=== PATIENT | female | born 1950 | race Caucasian/White ===

== ENCOUNTER 2016-12-28 | Emergency (ER) | payer OTHER ==
--- NOTE | 2016-12-28 00:53 | PROVIDER DOCUMENTATION ---
HPI-Headache - General Chief Complaint: Dizziness Stated Complaint: HIGH BP/DIZZY Time Seen by Provider: 12/28/16 00:11 Source: patient Allergies/Adverse Reactions: Patient Allergies Allergy/AdvReac Type Severity Reaction Status Date / Time rilonacept [From Arcalyst] Allergy ANAPHYLAXIS Verified 12/28/16 00:10 Home Medications: Home Medication List Medication Instructions Recorded Confirmed Last Taken Type Thyroid,Pork [[place] Thyroid] 30 mg PO 4XDAY 03/26/14 12/28/16 1 Day Ago History Sotalol [Betapace] 80 mg PO BID 09/10/14 12/28/16 12/28/16 History Nebivolol [Bystolic] 2.5 mg PO BID 04/02/16 12/28/16 12/28/16 History Clonidine HCl 0.1 mg PO TID PRN #30 tablet 11/08/16 12/28/16 Unknown Rx - History of Present Illness-Headache Nature of Presenting Problem: 66 y/o WF c hx of CVA x 3, 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 Currently BP 148/80, no headache, dizziness or neurological deficits. States she felt shakey and like her body was heavy, but that has resolved and she is just feeling tired. BP was read off a home machine, checked her BG which was 127 at home. Denies weakness on one side or the other. She states she just become worried due to all her history. States she sometimes have left sided weakness due to a stroke, but not currently Review of Systems - Adult - REVIEW OF SYSTEMS - ADULT Constitutional: reports: no symptoms reported. denies: chills, fatique Eyes: reports: no symptoms reported. denies: decreased vision, blurred vision, double vision, eye pain Ears, Nose, Mouth & Throat: reports: no symptoms reported. denies: ear pain, nose pain, throat pain Cardiovascular: reports: no symptoms reported. denies: chest pain, palpitations Respiratory: reports: no symptoms reported. denies: cough, shortness of breath Gastrointestinal: reports: no symptoms reported. denies: abdominal pain, diarrhea, nausea, vomiting Genitourinary: reports: no symptoms reported Musculoskeletal: reports: no symptoms reported. denies: back pain, muscle aches Integumentary: reports: no symptoms reported Neurological: reports: see HPI, dizziness/vertigo, tremors. denies: ataxia, headache/migraines, loss of balance, numbness, paresthesia, seizure, slurred speech, syncope Psychiatric: reports: no symptoms reported Endocrine: reports: no symptoms reported Hematologic/Lymphatic: reports: no symptoms reported Allergic/Immunologic: reports: no symptoms reported All Other Systems: Reviewed and Negative Past History - Adult - PAST MEDICAL HISTORY-ADULT Review of Records: reports: Old Records Reviewed, Nursing Assessment Review, Medications Reviewed Major Childhood Illnesses: reports: denies history Cardiovascular: reports: HTN, palpitations Respiratory: reports: COPD Gastrointestinal: reports: denies history Obstetrical/Gynecological: reports: denies history Genitourinary: reports: denies history Musculoskeletal: reports: denies history Neurological: reports: CVA, other (aneursym) Endocrine/Immune: reports: thyroid disorder (Graves DZ) Other Conditions: reports: denies history - PRIOR SURGERIES/PROCEDURES Surgical/Procedure History: reports: cholecystectomy, hysterectomy, other ( brain surgery) - PRIOR HOSPITALIZATIONS Prior Hospitalizations: reports: for similar symptoms - IMMUNIZATION STATUS Childhood Immunizations: See Nurse Assessment Flu Vaccine: See Nurse Assessment - FAMILY HISTORY Family History: reviewed, not pertinent Physical Exam- Neurological - Physical Exam-Neuro Initial Vital Signs Reviewed: Yes General Appearance: appears well, alert, no apparent distress Eye Exam: bilateral eye: normal inspection, PERRL, EOMI HENMT: normocephalic/atraumatic, moist mucous membranes, normal ENT inspection, TMs normal, pharynx normal Head Injury: no evidence of injury Neck: non-tender, full range of motion, supple, normal inspection Respiratory: chest non-tender, lungs clear, normal breath sounds, no pleuratic chest pain, no respiratory distress. 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 Exam: normal hearing, normal speech, PERRL Coordination/Gait: normal gait Motor/Sensory: no motor deficit, no sensory deficit, negative Babinski's sign Integumentary: normal color, normal turgor, warm/dry Psych/Mental Status: normal mood/affect, normal thought content, normal thought process, oriented x 3 - Glascow Coma Scale Best Eye Response: (4) open spontaneously Best Verbal Response: (5) oriented Best Motor Response: (6) obeys commands Progress - PLAN OF CARE/RESULTS Progress/Plan/Lab Results: Vital Signs Temp Pulse Resp BP Pulse Ox 12/28/16 01:27 58 L 19 133/72 94 L 12/28/16 00:57 59 L 19 121/65 93 L 12/28/16 00:30 65 22 151/82 95 12/28/16 00:04 97.0 F L 72 20 155/94 97 rilonacept [From Arcalyst] Allergy (Verified 12/28/16 00:10) ANAPHYLAXIS Thyroid,Pork [[place] Thyroid] 30 mg PO 4XDAY 03/26/14 Sotalol [Betapace] 80 mg PO BID 09/10/14 Nebivolol [Bystolic] 2.5 mg PO BID 04/02/16 Clonidine HCl 0.1 mg PO TID PRN #30 tablet 11/08/16 Orders Category Date Time Status HEAD W/O CONTRAST [CT] Stat Exams 12/28/16 00:48 Taken - CT/MRI 1 CT Study: Head Impression: Normal (No evidence of acute ischemia by CT. Status post aneurysm repair with an bilateral suprasellar region per Dr. Parham, [facility]) Departure - Departure Time of Disposition Order: 01:47 DIAGNOSIS: HTN (hypertension) Qualifiers: Hypertension type: essential hypertension Qualified Code(s): I10 - Essential ( primary) hypertension Disposition: HOME 01 Certified Medical Emergency: Emergent Condition: Stable Additional Instructions: Follow up with Dr. Alvarez. ED Follow Up Instructions: You have been treated by a care provider in the Emergency Department. These instructions are being provided to you so you can have an understanding of how to care for yourself upon discharge. Upon discharge from the Emergency Department, you are responsible for making arrangements for follow-up care by a physician of your choice. Take all prescribed medications as directed. Return to the Emergency Department immediately for any new or worsening symptoms. You may call the Physician Referral phone number at [phone] to obtain a list of Physicians who are taking new patients. Attestation - Physician/ JOSEE Attestation Patient care was provided by Advanced Practice Provider:: Yes Advanced Practice Provider:: Sonya Velasquez Advanced Practice Provider documentation review:: The Mid-level provider documentation, treatment plan and medical decision making was reviewed by the physician who agrees with all treatment and medical decision making by the MLP.
[2016-12-28 01:49] VITALS: BP 129/71
--- NOTE | 2016-12-28 06:53 | Diag Imaging Result Document ---
PROCEDURE NAME: HEAD W/O CONTRAST - 12/28/2016 CT BRAIN WITHOUT CONTRAST: TECHNIQUE: Dose-reduction protocol. COMPARISON: Compared to 04/15/2016. FINDINGS: There is evidence of bilateral aneurysm repair with multiple surgical clips. These create metallic artifact. No parenchymal hemorrhage. No epidural or subdural hematoma. No subarachnoid hemorrhage. No mass identified on this noncontrasted exam. No hydrocephalus. No sinus opacification. IMPRESSION: 1. Prior aneurysm repair. 2. No hemorrhage. No acute abnormality identified. A preliminary report was given at 1:43 a.m.
== END 2016-12-28 01:55 | disposition home or self-care (01) ==
LOC: P.ED
DX: I10 Essential (primary) hypertension (principal); R42 Dizziness and giddiness; R25.1 Tremor, unspecified; J44.9 Chronic obstructive pulmonary disease, unspecified; Z86.73 Personal history of transient ischemic attack (TIA), and cerebral infarction without residual deficits; E05.00 Thyrotoxicosis with diffuse goiter without thyrotoxic crisis or storm; Z79.899 Other long term (current) drug therapy
CPT/HCPCS: 70450

== ENCOUNTER 2019-06-08 23:44 | Observation (INO) ==
[2019-06-09] MEDS ORDERED: DUONEB (A & A) INH ONE (00:18)
[2019-06-09 00:40] LABS: BASO# 0.02 X1000 (0.0-0.2); BASO% 0.2 % (0.0-0.8); EOS% 1.6 % (0.0-10.0); HEMATOCRIT 41.5 % (37.0-47.0); HEMOGLOBIN 13.8 g/dL (12.0-16.0); IMM GRAN# 0.06 X1000 (0.0-0.04); IMM GRAN% 0.5 % (0.0-0.5); LYMPH# 3.22 X1000 (1.2-3.4); MCH 30.3 PG (27-31); MCHC 33.3 g/dL (33-37); MCV 91.2 FL (81-99); MONO# 0.79 X1000 (0.11-0.59); MONO% 6.1 % (1.7-9.3); MPV 9.5 FL (7.4-10.4); NEUT% 66.6 % (42.2-75.2); PLT 351 X1000 (130-400); RBC 4.55 XMIL (4.2-5.4); RDW 14.9 % (11.5-14.5); WBC 12.89 X1000 (4.8-10.8)
[2019-06-09 00:47] LABS: BE 3.2 mmoll (-3.0-3.0); BLOOD TYPE ARTERIAL; HCO3-(ACT) 27.1 mmoll (20.0-26.0); METHB 1.5 % (0.0-1.5); O2(CT) 15.8 mL/dL (15.0-23.0); PCO2(98.6) 45 mmHg (35-45); PO2(98.6) 67 mmHg (60-100); SAMPLE BLOOD; SAO2 96.7 % (95.0-100.0); THB 13.1 g/dL (11.5-17.4); pH(98.6) 7.41 (7.35-7.45)
[2019-06-09 00:48] LABS: INR 0.92; PROTIME 12.8 Seconds (11.0-16.0)
[2019-06-09 00:50] LABS: ALLEN TEST YES; MODALITY ROOM AIR; O2HB 85.4 % (95.0-99.0)
[2019-06-09 00:57] LABS: AGAP 10; ALBUMIN 3.5 g/dL (3.5-5.0); ALKALINE PHOSPHATASE 64 U/L (32-104); BUN 14 mg/dL (8-22); CALCIUM 8.2 mg/dL (8.8-10.2); CHLORIDE 106 mmol/L (98-107); CK PROFILE 82 U/L (24-173); COSMO 286; CREATININE 0.6 mg/dL (0.5-0.9); ESTIMATED GFR > 60; GLUCOSE 140 mg/dL (70-104); GOT 20 U/L (10-30); GPT 20 U/L (10-36); MAGNESIUM 1.7 mg/dL (1.5-2.7); SODIUM 142 mmol/L (136-145); TCO2 26 mmol/L (25-35); TOTAL BILIRUBIN < 0.15 mg/dL (0.20-1.00); TOTAL PROTEIN 5.7 g/dL (6.3-8.3)
[2019-06-09] MEDS ORDERED: SOLU-MEDROL IV ONE (01:15)
[2019-06-09] MEDS ORDERED: LEVAQUIN 750 MG/D5W 750 MG/150 ML IVPB IV ONE (01:15)
[2019-06-09] MEDS ORDERED: TYLENOL PO PRN (01:21)
[2019-06-09] MEDS ORDERED: ZOFRAN IV PRN (01:21)
--- NOTE | 2019-06-09 01:21 | PROVIDER DOCUMENTATION ---
This chart was entered by Jae Basilio Scribe, acting as scribe for Freddie Herrmann MD. HPI-Respiratory General - General Chief Complaint: Shortness of Breath Stated Complaint: BP PROBS/SOB Time Seen by Provider: 06/08/19 23:51 Source: patient Allergies/Adverse Reactions: Patient Allergies Allergy/AdvReac Type Severity Reaction Status Date / Time bismuth subsalicylate Allergy ANAPHYLAXIS Verified 09/21/18 18:21 [From Kaopectate (bismuth subsalicy)] rilonacept [From Arcalyst] Allergy ANAPHYLAXIS Verified 09/21/18 18:21 Home Medications: Home Medication List Medication Instructions Recorded Confirmed Last Taken Type Thyroid,Pork [[place] Thyroid] 90 mg PO DAILY 03/26/14 09/21/18 09/21/18 History Propranolol HCl 10 mg PO RTBID 06/16/18 09/21/18 09/21/18 History Albuterol 2.5MG/Ipratrop 0.5MG 2 puff INH Q6H PRN PRN 09/21/18 09/21/18 09/21/18 History [Duoneb] Ellipta 1 inh IH DAILY 09/21/18 09/21/18 History Sucralfate [Carafate] 1 gm PO 4XDAY 09/21/18 09/21/18 09/21/18 History - History of Present Illness-Resp Nature of Presenting Problem: Pt is a 69 yof who presents to the ED with a CC of shortness of breath. Pt states she became short of breath approximately thirty minutes prior to arrival to the ED. Pt states her blood pressure elevated and she started to feel like she was losing control of her body movements. Pt reports a hx of a stroke. Pt denies any chest pain or loss of consciousness. Pt states she has oxygen at home, but states she does not use it. Pt reports being a 1 ppd smoker. Pt also complains of a cough, being nauseas, feeling lightheaded, and having indigestion. Quality of Pain: reports: none Severity in ED: reports: mild Onset/Duration: reports: 1-3 hours ago Timing: reports: still present Cough Quality/Degree: reports: mild Episode Frequency: occasional episodes Current Respiratory Medication Therapy: Initiated see nurses note Similar Symptoms Previously?: No Recently seen or treated by another doctor?: No Review of Systems - Adult - REVIEW OF SYSTEMS - ADULT Constitutional: reports: see HPI Eyes: reports: no symptoms reported Ears, Nose, Mouth & Throat: reports: no symptoms reported Cardiovascular: reports: see HPI, irregular heart rate Respiratory: reports: see HPI, cough, shortness of breath Gastrointestinal: reports: no symptoms reported Genitourinary: reports: no symptoms reported Musculoskeletal: reports: no symptoms reported Integumentary: reports: no symptoms reported Neurological: reports: see HPI, dizziness/vertigo Psychiatric: reports: no symptoms reported Endocrine: reports: no symptoms reported Hematologic/Lymphatic: reports: no symptoms reported Allergic/Immunologic: reports: no symptoms reported All Other Systems: Reviewed and Negative Past History - Adult - PAST MEDICAL HISTORY-ADULT Review of Records: reports: Old Records Reviewed, Nursing Assessment Review, Medications Reviewed, Social history reviewed & non-contributory. Major Childhood Illnesses: reports: denies history Cardiovascular: reports: HTN, palpitations Respiratory: reports: asthma, COPD Gastrointestinal: reports: denies history Obstetrical/Gynecological: reports: denies history Genitourinary: reports: denies history Musculoskeletal: reports: denies history Neurological: reports: CVA, Seizures/Epilepsy, other (aneursym) Endocrine/Immune: reports: thyroid disorder (Graves DZ) Other Conditions: reports: denies history - PRIOR SURGERIES/PROCEDURES Surgical/Procedure History: reports: cholecystectomy, hysterectomy, other (brain surgery) - PRIOR HOSPITALIZATIONS Prior Hospitalizations: reports: for similar symptoms - IMMUNIZATION STATUS Childhood Immunizations: See Nurse Assessment Flu Vaccine: See Nurse Assessment - FAMILY HISTORY Family History: reviewed, not pertinent - SOCIAL HISTORY Smoking: cigarettes, less than 1 pack/day Substance Use: none/never, denies Alcohol Use Frequency: never Physical Exam-General - PHYSICAL EXAM-ADULT Initial Vital Signs Reviewed: Yes - CONSTITUTIONAL General Appearance: alert, mild distress - EYES Eyes: PERRL/EOMI, pink conjunctivae - NECK Neck: non-tender, full range of motion - RESPIRATORY Respiratory: chest non-tender, rales, increased rate - CARDIOVASCULAR Cardiovascular: normal peripheral pulses, regular rate, rhythm, no edema, no gallop, no JVD, no murmur - GASTROINTESTINAL (ABDOMEN) Abdominal Exam: non tender, soft - MUSCULOSKELETAL Extremity: normal range of motion, non-tender - SKIN Integumentary: normal color, warm/dry - NEUROLOGIC Neurologic: grossly normal, no motor/sensory deficits - PSYCHIATRIC Psych/Mental Status: normal mood/affect, normal thought content, normal thought process, oriented x 3 Progress - PLAN OF CARE/RESULTS Progress/Plan/Lab Results: Vital Signs - 8 hr 06/08/19 23:47 06/09/19 00:28 Temperature 98.1 F Pulse Rate 87 68 Respiratory Rate 22 24 Blood Pressure 189/87 O2 Sat by Pulse Oximetry 94 L 92 L Laboratory Results - last 24 hr 06/08/19 06/08/19 06/08/19 23:59 23:59 23:59 WBC 12.89 H RBC 4.55 Hgb 13.8 Hct 41.5 MCV 91.2 MCH 30.3 MCHC 33.3 RDW Std Deviation 14.9 H Plt Count 351 MPV 9.5 Immature Gran % (Auto) 0.5 Neut % (Auto) 66.6 Lymph % (Auto) 25.0 Nolan % (Auto) 6.1 Eos % (Auto) 1.6 Baso % (Auto) 0.2 Immature Gran # (Auto) 0.06 H Neut # (Auto) 8.60 H Lymph # (Auto) 3.22 Nolan # (Auto) 0.79 H Eos # (Auto) 0.20 Baso # (Auto) 0.02 PT INR Specimen Type Sample Site pH pCO2 pO2 HCO3 Base Excess Oxyhemoglobin ABG O2 Sat (Calculated) ABG O2 Saturation ABG Carboxyhemoglobin ABG Methemoglobin Edvin Test A-a O2 Difference Total Hemoglobin Lactate Blood Gas Modality FiO2 % Sodium 142 Potassium 4.0 Chloride 106 Carbon Dioxide 26 Anion Gap 10 BUN 14 Creatinine 0.6 Estimated GFR/1.73 m2 > 60 BUN/Creatinine Ratio 23 Glucose 140 H Calculated Osmolality 286 Calcium 8.2 L Magnesium 1.7 Total Bilirubin < 0.15 L AST 20 ALT 20 Alkaline Phosphatase 64 Creatine Kinase 82 Troponin T Dbb-R-Noissyguxrt Pept 159 Total Protein 5.7 L Albumin 3.5 Globulin 2.0 Albumin/Globulin Ratio 2.0 06/08/19 06/08/19 06/09/19 23:59 23:59 00:27 WBC RBC Hgb Hct MCV MCH MCHC RDW Std Deviation Plt Count MPV Immature Gran % (Auto) Neut % (Auto) Lymph % (Auto) Nolan % (Auto) Eos % (Auto) Baso % (Auto) Immature Gran # (Auto) Neut # (Auto) Lymph # (Auto) Nolan # (Auto) Eos # (Auto) Baso # (Auto) PT 12.8 INR 0.92 Specimen Type ARTERIAL Sample Site R RADIAL pH 7.41 pCO2 45 pO2 67 HCO3 27.1 H Base Excess 3.2 H Oxyhemoglobin 85.4 L* ABG O2 Sat (Calculated) 15.8 ABG O2 Saturation 96.7 ABG Carboxyhemoglobin 10.20 H* ABG Methemoglobin 1.5 Edvin Test YES A-a O2 Difference 26.0 Total Hemoglobin 13.1 Lactate 1.00 Blood Gas Modality ROOM AIR FiO2 % 21.0 Sodium Potassium Chloride Carbon Dioxide Anion Gap BUN Creatinine Estimated GFR/1.73 m2 BUN/Creatinine Ratio Glucose Calculated Osmolality Calcium Magnesium Total Bilirubin AST ALT Alkaline Phosphatase Creatine Kinase Troponin T < 0.010 Wri-R-Jfqubpuziwm Pept Total Protein Albumin Globulin Albumin/Globulin Ratio Orders Category Date Time Status Nursing- Obtain EKG once Care 06/09/19 00:22 Active Oxygen Therapy- ED Nursing DIRECTED Care 06/09/19 00:03 Active Saline Loc NOW Care 06/09/19 00:22 Active CHEST-PORTABLE [RAD] Stat Exams 06/09/19 00:[address] HEAD W/O CONTRAST [CT] Stat Exams 06/09/19 00:24 Taken ABG [RESP] Routine Lab 06/09/19 00:27 Completed CBC WITH ELECTRONIC DIFF [HEME] Stat Lab 06/09/19 00:28 Completed CK PROFILE [SP CHEM] Stat Lab 06/09/19 00:28 Completed COMPREHENSIVE METABOLIC PANEL [CHEM] Stat Lab 06/09/19 00:28 Completed MAGNESIUM [CHEM] Stat Lab 06/09/19 00:28 Completed PRO B-NATRIURETIC PEPTIDE Stat Lab 06/09/19 00:28 Completed PROTIME WITH INR [COAG] Stat Lab 06/09/19 00:28 Completed TROPONIN T Stat Lab 06/09/19 00:28 Completed Albuterol 2.5MG/Ipratrop 0.5MG [Duoneb (A & A)] Med 06/09/19 00:18 Discont inued 3 ml INH NOW ONE Aerosol Treatments Routine Oth 06/09/19 00:19 Completed Aerosol Treatments Stat Oth 06/09/19 00:19 Completed Asthma/COPD (Adult) Stat Oth 06/09/19 00:02 Ordered EKG [EKG] Stat Ther 06/09/19 00:22 Ordered Result Diagrams: 06/08/19 23:59 06/08/19 23:59 - REASSESSMENT Reassessment #1 Time Reassessed: 01:16 Status: improving (after duoneb. Also given IVF, solumedrol and levaquin) - EKG 1 Time of EKG reading by physician:: 00:51 EKG Read and Signed by:: Freddie Herrmann EKG Interpretation (*Must complete 3 of following elements*): Normal Rate: 63 Rhythm: NSR [place]: normal QRS: normal HI Interval: normal ST Wave: normal - XRAY 1 XRAY Study: Chest Impression: Abnormal (CM, hyperexpanded, chronic interstitial changes, calcified aortic ring. Read by me at 0110) - CT/MRI 1 CT Study: Head Impression: Abnormal (Read by me at 0120: No bleed or evidence of acute infarct. There are multiple aneurysm clips. There is a meningioma left parietal area. Nothing acute.) - CONSULTS/PCP/HOSPITALIST Notification #1 *Consult/PCP/Hospitalist*: Antonio Time Discussed: 01:17 Consult Disposition: Admit Departure - Departure Date of Disposition Decision: 06/09/19 Time of Disposition Decision: :19 DIAGNOSIS: Near syncope, COPD with exacerbation, Tobacco use disorder Carboxyhemoglobinemia Qualifiers: Encounter type: initial encounter Injury intent: accidental or unintentional Qualified Code(s): T58.91XA - Toxic effect of carbon monoxide from unspecified source, accidental (unintentional), initial encounter Disposition: ADMITTED INPATIENT 09 Certified Medical Emergency: Emergent Condition: Fair Additional Freetext Instructions: ED Follow Up Instructions: You have been treated by a care provider in the Emergency Department. These instructions are being provided to you so you can have an understanding of how to care for yourself upon discharge. Upon discharge from the Emergency Department, you are responsible for making arrangements for follow-up care by a physician of your choice. Take all prescribed medications as directed. Return to the Emergency Department immediately for any new or worsening symptoms. You may call the Physician Referral phone number at [phone] to obtain a list of Physicians who are taking new patients. Referrals and Follow-Ups: Mohamud Alvarez MD [Primary Care Provider] - - Critical Care Note This patient required my direct & personal management of CC.: No Attestation - Physician/ JOSEE Attestation Patient care was provided by Advanced Practice Provider:: No The physician spent face to face time with patient:: Yes Advanced Practice Provider documentation review:: Supervising physician onsite and consulted in the evaluation and care of this patient. The physician did have a face to face encounter with the patient. This chart was documented by the indicated scribe, (Jae Basilio, [place]) and accurately reflects the services I performed and decisions made by me, Freddie Herrmann MD, as attested by the provider's signature.
[2019-06-09] MEDS ORDERED: NICODERM PATCH TD ONE (01:26)
[2019-06-09] MEDS: DUONEB (A & A) INH SCH ×4 (04:27→15:28)
[2019-06-09 04:54] LABS: BILIRUBIN URINE NEGATIVE (NEGATIVE); COLOR YELLOW; GLUCOSE URINE NEGATIVE (NEGATIVE); KETONE URINE NEGATIVE (NEGATIVE); URINE BACTERIA NEGATIVE /HFP; URINE EPITHELIAL CELLS <10 /HPF (<10); URINE SOURCE CLEAN CATCH; URINE WBC <10 /HPF (<10)
--- NOTE | 2019-06-09 05:03 | EKG Report ---
Test Performed on : 06/09/2019 00:47:03 AM Test Reason : sob Blood Pressure : / mmHG Vent. Rate : 063 BPM Atrial Rate : 063 BPM P-R Int : 154 ms QRS Dur : 080 ms QT Int : 416 ms P-R-T Axes : 082 076 064 degrees QTc Int : 425 ms Normal sinus rhythm. Normal ECG When compared with ECG of 21-SEP-2018 18:10, premature atrial complexes. are no longer present Nonspecific T wave abnormality no longer evident in Inferior leads Unconfirmed Result
--- NOTE | 2019-06-09 05:28 | Diag Imaging Result Doc PS360 ---
EXAM: CHEST-PORTABLE HISTORY: sob TECHNIQUE: Chest single view COMPARISON: 03/02/2019 FINDINGS: The lungs are hyperexpanded. The heart is not enlarged. The vessels are not distended. There are no infiltrates. No effusion identified. IMPRESSION: Emphysema Electronically signed by Bartolome Glynn 06/09/2019 5:26 AM
--- NOTE | 2019-06-09 05:34 | Diag Imaging Result Doc PS360 ---
EXAM: CT HEAD W/O CONTRAST HISTORY: near syncope TECHNIQUE: CT head without contrast COMPARISON: 09/21/2018 FINDINGS: There are bilateral aneurysm clips. Large calcification in the left temporal region is unchanged. No parenchymal hemorrhage. No epidural or subdural hematoma. No subarachnoid hemorrhage. Mild chronic microvascular ischemic changes. No mass identified on this noncontrasted exam. No hydrocephalus. No sinus opacification. IMPRESSION: No hemorrhage. No change. A preliminary report was given at 1:23 AM This exam was performed using automated exposure control, adjustment of mA or kV according to patient size, and/or use of iterative reconstruction technique. Electronically signed by Bartolome Glynn 06/09/2019 5:32 AM
[2019-06-09 06:17] LABS: BLOOD URINE 2+ (NEGATIVE); CLARITY CLEAR (CLEAR); LEUKOCYTES URINE NEGATIVE (NEGATIVE); NITRITE URINE NEGATIVE (NEGATIVE); PROTEIN URINE NEGATIVE (NEGATIVE); UROBILINOGEN URINE NORMAL
[2019-06-09 07:41] VITALS: BP 151/79
[2019-06-09] MEDS: SOLU-MEDROL IV SCH ×2 (09:31→14:40)
[2019-06-09 11:42] LABS: BLOOD TYPE ARTERIAL; SAMPLE BLOOD
[2019-06-09 11:43] LABS: BE 2.4 mmoll (-3.0-3.0); HCO3-(ACT) 26.5 mmoll (20.0-26.0); METHB 1.2 % (0.0-1.5); O2(CT) 18.6 mL/dL (15.0-23.0); PCO2(98.6) 38 mmHg (35-45); PO2(98.6) 54 mmHg (60-100); SAO2 92.7 % (95.0-100.0); THB 15.1 g/dL (11.5-17.4); pH(98.6) 7.45 (7.35-7.45)
[2019-06-09 11:47] LABS: MODALITY ROOM AIR; O2HB 87.8 % (95.0-99.0)
--- NOTE | 2019-07-09 14:47 | HISTORY AND PHYSICAL ---
HISTORY OF PRESENT ILLNESS: This is a 69-year-old female who has a history of shortness of breath from smoking and blood pressure problems. She is taking [place] Thyroid 90 mg daily, propranolol 10 p.o. routine b.i.d., albuterol and ipratropium 2.5/0.05 two puffs q.6 p.r.n., Ellipta 1 inhalation daily, and Carafate. She presented to the ER complaining of shortness of breath and blood pressure being high. It started 30 minutes prior to arrival to the emergency room. She stated her blood pressure was elevated, and she felt like she was losing control of her bodily movements. She reports a history of a stroke and aneurysmal bleeds in the past. The patient denies any chest pain or loss of consciousness. She states she has had oxygen available at home but stated she does not use it. She reports being a 1 pack per day smoker. She complains of cough, being nauseated and lightheaded and having indigestion. All of these symptoms are 1 to 3 hours old. ALLERGIES: She is allergic to Kaopectate,levaquin,sulfa,novocaine REVIEW OF SYSTEMS: She has denied any significant weight change, weight loss, fever or chills. Eyes: No visual acuity changes. No irritation. No lens problems. No retina problems. Ears, nose and throat: No pharyngitis, otitis or sinusitis. Cardiovascular: She has history of irregular heart rates. No recent chest pain, PND, orthopnea, claudication, TIA, syncope. Respiratory: She has a cough and gets short of breath off and on. No significant phlegm production. No hemoptysis. No TB. No asthma. Gastrointestinal: No nausea, vomiting, diarrhea, constipation, bloody stools, black stools or tarry stools. : No dysuria, hematuria, polyuria, or pyuria. Musculoskeletal: No issues reported there. Skin: No rashes or lesions or bumps. Neurologic: No focal deficits. No seizure disorder. No migraines. Psychiatric: She is a bit of an anxious lady considering all her aneurysm issues. She has no history of clotting or bleeding disorder. PAST MEDICAL HISTORY: She has had a CVA. She has had seizures. She has epilepsy. She has had an aneurysm. She has thyroid disorder secondary to Graves disease. COPD and asthma secondary to smoking. Hypertension with palpations. PAST SURGICAL HISTORY: She is status post cholecystectomy, hysterectomy and brain surgery on a couple of occasions. SOCIAL HISTORY: She smokes less than a pack a day. She does not use any substances. Never drinks alcohol. PHYSICAL EXAMINATION: VITAL SIGNS: Her temperature was 98.1 on admission, pulse 87, respiratory rate 22, blood pressure 180/87, O2 saturation was 94% and 92%. HEENT: Head was normocephalic. Eyes were PERRL. EOMs intact. Sclerae clear. Fundi benign. Nares patent. Oropharynx negative. NECK: Supple with bounding carotids, without thyromegaly. CHEST: Clear. Bilateral breath sounds, increased respiratory rate. No consolidative findings. No rubs. No rhonchi. No wheezes. CARDIOVASCULAR: Regular rate and rhythm. No murmurs, gallops, clicks or rubs. Peripheral pulses intact. ABDOMEN: Soft. No hepatosplenomegaly. No CVA tenderness. EXTREMITIES: Negative for cyanosis, clubbing or edema. NEUROLOGICAL: Intact with no focal deficits. Mental status was intact and appropriate. ASSESSMENT AND PLAN: She was admitted for shortness of breath, chronic obstructive pulmonary disease secondary to smoking, hypertension, history of an aneurysm, history of headaches, history of chronic anxiety. cc: Mohamud Alvarez MD MTDD
--- NOTE | 2019-07-09 14:55 | DISCHARGE SUMMARY ---
ADMISSION DATE: 06/09/2019 DISCHARGE DATE: 06/09/2019 HISTORY OF PRESENT ILLNESS: This is a 69-year-old lady that was admitted to the hospital with shortness of breath. She has a history of COPD secondary to smoking. She has had an aneurysm before. She has had thyroid disease. She also had lots of anxiety. Her white count was 12,890, hematocrit was 41.5, platelet count was 351. Electrolytes were normal. BUN was 14, creatinine 0.6, GFR greater than 60, ratio 23. Glucose was 140, calcium 8.2, magnesium was 1.7. AST and ALT were negative. Alkaline phosphatase was negative. Total protein and albumin were normal. INR was 0.92. Blood gas showed pH of 7.41, pCO2 of 45, pO2 of 67. Carboxyhemoglobin was 1020. Troponin was intact. EKG with normal sinus rhythm. Chest x-ray was hyperexpanded. CT negative. Multiple aneurysmal clips. She was obviously having, I think, problems secondary to her carbon monoxide from almost 2 packs a day. We advised her to stop doing that. We did not significantly change any of her medications. She was discharged, and we will see her in the office. cc: Mohamud Alvarez MD
== END 2019-06-09 16:12 | disposition home or self-care (01) ==
LOC: P.ED 23:44 → P.MEDSURG 23:44
PROVIDERS: ADMIT Internal Medicine; ATTEND Internal Medicine

== ENCOUNTER 2019-10-11 15:11 | Observation (INO) ==
[2019-10-11] MEDS: ATROVENT NEB INH SCH ×3 (16:54→23:27)
[2019-10-11] MEDS ORDERED: ROCEPHIN 1 GM in NS 50 ML IV SCH (17:00)
[2019-10-11] MEDS: SOLU-MEDROL IV SCH (17:41)
[2019-10-11] MEDS: TESSALON PO SCH (17:41)
[2019-10-11] MEDS ORDERED: ZITHROMAX 500 MG/NS 500 MG/250 ML IVPB IV SCH (18:00)
[2019-10-11] MEDS: SYMBICORT 160/4.5 MICROGM INHALER INH SCH (18:32)
[2019-10-11] MEDS: INDERAL PO SCH (20:50)
--- NOTE | 2019-10-11 21:16 | Diag Imaging Result Doc PS360 ---
EXAM: CHEST-PORTABLE 10/11/2019 HISTORY: SOB TECHNIQUE: Erect AP portable at 2043 COMMENT: There is a cardiac loop recorder projected over the left chest. There is a linear opacity in the costophrenic sulcus on the left which is probably due to atelectasis or fibrosis. This is not as well demonstrated on 06/09/2019. Otherwise the appearance of the chest has not changed significantly considering differences in technique. IMPRESSION: Minimal atelectasis left lower lobe. Electronically signed by [employer] 10/11/2019 9:14 PM
[2019-10-12] MEDS: SOLU-MEDROL IV SCH (04:03)
[2019-10-12] MEDS: ATROVENT NEB INH SCH ×3 (04:08→14:39)
[2019-10-12 04:31] LABS: BE 3.4 mmoll (-3.0-3.0); BLOOD TYPE ARTERIAL; HCO3-(ACT) 27.2 mmoll (20.0-26.0); METHB 1.4 % (0.0-1.5); O2(CT) 17.8 mL/dL (15.0-23.0); PCO2(98.6) 44 mmHg (35-45); SAMPLE BLOOD; SAO2 88.7 % (95.0-100.0); THB 14.9 g/dL (11.5-17.4); pH(98.6) 7.42 (7.35-7.45)
[2019-10-12 04:36] LABS: PO2(98.6) 48 mmHg (60-100)
[2019-10-12 04:37] LABS: ALLEN TEST YES; MODALITY ROOM AIR; O2HB 85.3 % (95.0-99.0)
[2019-10-12 06:20] LABS: BASO# 0.02 X1000 (0.0-0.2); BASO% 0.4 % (0.0-0.8); HEMATOCRIT 42.7 % (37.0-47.0); HEMOGLOBIN 13.4 g/dL (12.0-16.0); IMM GRAN# 0.01 X1000 (0.0-0.04); IMM GRAN% 0.2 % (0.0-0.5); LYMPH# 0.77 X1000 (1.2-3.4); LYMPH% 15.6 % (20.5-51.1); MCH 29.1 PG (27-31); MCHC 31.4 g/dL (33-37); MCV 92.6 FL (81-99); MONO# 0.12 X1000 (0.11-0.59); MONO% 2.4 % (1.7-9.3); MPV 9.4 FL (7.4-10.4); NEUT# 4.03 X1000 (1.4-6.5); NEUT% 81.4 % (42.2-75.2); PLT 385 X1000 (130-400); RBC 4.61 XMIL (4.2-5.4); RDW 13.9 % (11.5-14.5); WBC 4.95 X1000 (4.8-10.8)
[2019-10-12 06:36] LABS: AGAP 13; ALBUMIN 4.2 g/dL (3.5-5.0); ALKALINE PHOSPHATASE 77 U/L (32-104); BUN 9 mg/dL (8-22); CALCIUM 8.9 mg/dL (8.8-10.2); CHLORIDE 102 mmol/L (98-107); COSMO 282; CREATININE 0.5 mg/dL (0.5-0.9); ESTIMATED GFR > 60; GLUCOSE 169 mg/dL (70-104); GOT 23 U/L (10-30); GPT 19 U/L (10-36); POTASSIUM 4.2 mmol/L (3.5-5.1); SODIUM 140 mmol/L (136-145); TCO2 26 mmol/L (25-35); TOTAL PROTEIN 7.5 g/dL (6.3-8.3)
[2019-10-12] MEDS ORDERED: THYROID PO SCH (07:00)
[2019-10-12] MEDS: INDERAL PO SCH ×2 (07:08→14:06)
--- NOTE | 2019-10-12 09:54 | Diag Imaging Result Doc PS360 ---
EXAM: CHEST-PORTABLE - 10/12/2019 HISTORY: SOB TECHNIQUE: Portable chest COMPARISON: 10/11/2018 FINDINGS: Heart size is normal. There is mild interstitial marking prominence similar to prior. There is no dense consolidation, substantial pleural effusion, or pneumothorax identified. IMPRESSION: Stable exam compared to prior. Electronically signed by Jone Jimenez 10/12/2019 9:52 AM
[2019-10-12] MEDS: SYMBICORT 160/4.5 MICROGM INHALER INH SCH (10:04)
[2019-10-12] MEDS: TESSALON PO SCH ×2 (10:27→14:06)
[2019-10-12 14:53] VITALS: BP 155/88
--- NOTE | 2019-11-11 11:42 | DISCHARGE SUMMARY ---
ADMISSION DATE: 10/11/2019 DISCHARGE DATE: 10/12/2019 HISTORY OF PRESENT ILLNESS: This is a 69-year-old female with smoking and a history of COPD with hypoxemia. She has had a recent exacerbation. She presented to the office and was hospitalized for therapy. 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 She is still a current smoker. HOSPITAL COURSE: She was admitted. She had a chest x-ray on 10/11/2019 which showed there was a cardiac loop recorder projected over her left chest for previous atrial fibrillation. There is a linear opacity in the costophrenic sulcus on the left which is probably due to baseline atelectasis or fibrosis, unchanged, and not well demonstrated on 06/09/2019, otherwise the chest is not changed significantly considering the differences in technique. The following day, we gave her respiratory therapy, unchanged exam. Laboratory data showed her CBC was normal. Her blood gas on 10/12/2019 showed pH was 7.42, pCO2 was 44, pO2 was 48, carboxyhemoglobin was 2.4, and that was on room air. Comp was normal other than a glucose of 169. She was placed in the hospital, continued on her medications which include propranolol 20 mg p.o. b.i.d., albuterol, budesonide, formoterol, methylprednisolone 125 IV q.12, ceftriaxone 1 g q.24, benzonatate 100 t.i.d., azithromycin. The following day, we switched her over to prednisone 10 b.i.d. She was feeling much better. Her sputum that was growing was subsequently negative. The following day, after 10/11/2019 and 10/12/2019, her vital signs showed temperature was 97.6, pulse was 78, respiratory rate 20, blood pressure 155/88. Her O2 saturation on room air was 98%, but earlier during the day, it was down to 94%. We discharged her on steroids and routine nebulizers and will follow her up as an outpatient. cc: Mohamud Alvarez MD
--- NOTE | 2019-11-13 04:21 | HISTORY AND PHYSICAL ---
HISTORY OF PRESENT ILLNESS: A 69-year-old female born 1950. The patient comes in because of some difficulty breathing. She is a smoker 1 pack a day, has been a smoker for quite some time, has had a history of several aneurysms, one that has ruptured in the past. She has a history of a benign frontal lobe tumor as well. She noted that recently she had been having some more issues with breathing, coughing, feeling like she is wheezing and short of breath. No significant fever or chills. She is status post cholecystectomy, hysterectomy, and thyroid surgery. She has a history of hypertension controlled by medications. ALLERGIES: She is allergic to Bismuth, rilonacept. PAST MEDICAL HISTORY: She denies any significant problems other than she has COPD self-inflicted with her chronic cigarette smoking. She has had problems with blackout spells and atypical seizures and atypical stroke since she had her aneurysm. She has a history of Graves disease. REVIEW OF SYSTEMS: Constitutional: She has generally no significant change in her weight. No fever. No chills. Head: She has occasional headaches, migraines she attributes to her aneurysm and her benign brain tumor. She has no change in her visual acuity. ENT otherwise negative. Cardiovascular: She has had hypertension that is well-controlled. No significant heart failure, ischemic heart disease, significant arrhythmias. Pulmonary: See present illness. GI: No nausea, vomiting, diarrhea, or constipation. No melena, no hematochezia. : No hematuria, polyuria, pyuria, incontinence. Neuromuscular: Negative. Skin: Clear, no rashes, no lesions. PAST SURGICAL HISTORY: She had thyroid surgery. She had we think a procedure done with her aneurysm down at [facility]. She has had her pneumonia vaccine in 2010, influenza in 2019. PHYSICAL EXAMINATION: GENERAL: On admission, she is 5 feet 6 inches, weighs 69 kg. HEENT: Normocephalic. Eyes were PERRL, EOMs intact, EAC clear. CHEST: Rhonchi, diminished breath sounds throughout all lung fam. CARDIOVASCULAR EXAM: Regular rhythm and rate. No murmurs, gallops, clicks, or rub. ABDOMEN: No hepatosplenomegaly. No CVA tenderness. EXTREMITIES: Negative for clubbing, cyanosis, and edema. VITAL SIGNS: On admission, she had a blood pressure of 180/84, pulse was 104, O2 saturation on room air was 91%. She was admitted for assessment of her hypoxemia and therapy for her chronic COPD. She was admitted. cc: Mohamud Alvarez MD
== END 2019-10-12 15:34 | disposition home health service (06) ==
LOC: P.DIRADM → P.MEDSURG 15:11
PROVIDERS: ADMIT Internal Medicine; ATTEND Internal Medicine